=== PATIENT | female | born 1950 | race Caucasian/White ===

== ENCOUNTER → 2016-10-16 | Outpatient (CLI) | payer MEDICARE, OTHER ==
--- NOTE | 2016-10-16 15:48 | MR ---
MR brain and lumbar spine without contrast HISTORY: Unspecified optic atrophy, spinal stenosis Multiplanar multisequence imaging obtained through the brain and lumbar spine Correlation to prior MR lumbar spine 16 April 2014, prior brain MRI 28 September 2013, brain and orbi t MRI 23 May 2007 Brain MRI: There is no restricted diffusion to suggest subacute ischemia. Cortical atrophy is likely age-related. Scattered periventricular white matter hyperintensities are present on inversion recover y and T2-weighted sequences similar to prior exam, there are approximately 10-15 lesions. Probable mu cus retention cyst again noted within the maxillary antrum on the left. The orbits show symmetric inocente earance, optic nerves show a symmetric and stable appearance. Cerebellopontine angles, corpus callosu m, pituitary, cervical medullary junction are unremarkable. There is no hemorrhage or hydrocephalus. IMPRESSION: No significant interval change. Stable exam. Nonspecific white matter demyelination, age- related atrophy are stable findings. Additional findings above. Lumbar MRI: There is mild spinal curvature. Lumbar vertebral bodies show preserved height. Heterogene ous marrow signal is noted, there is anterolisthesis grade 1 L4-5, retrolisthesis grade 1 L2-3 as on previous exam. Multilevel spondylosis is present. Some loss of disc height and signal is greatest at L2-3, loss of disc signal is present throughout compatible with disc desiccation. The conus is at T12 and shows an unremarkable appearance. Incidental note made of borderline common bile duct dilation, correlate for possible cholecystectomy consider alternate imaging for better evaluation L5-S1: Facet arthropathy changes present, circumferential extension of broad-based disc bulge may con tact the proximal S1 nerve roots, anterior thecal sac, there may be minimal foraminal encroachment bi laterally. L4-5: The listhesis contributes with circumferential disc bulge causes some mild foraminal encroachme nt, mild anterior mass effect on the thecal sac. No significant spinal stenosis. Hypertrophy of ligam entum flavum with facet arthropathy encroaches mildly on the lateral recesses. L3-4: Facet arthropathy with hypertrophy ligamentum flavum encroaches on the lateral recesses, circum ferential extension of endplate disc bulge causes some mild foraminal encroachment bilaterally. Mild central stenosis. L2-3: Posterior broad-based disc bulge causes mild anterior mass effect on the thecal sac. Mild encro achment or significant neural foramina. There is facet arthropathy. L1-2: Mild posterior broad-based disc bulge causes minimal anterior mass effect on the thecal sac. No significant central stenosis. T12-L1: Right posterior paracentral disc bulge causes minimal anterior mass effect on the thecal sac. Small cortical cyst associated with the right kidney. IMPRESSION: Degenerative disc disease, facet arthropathy, mild foraminal encroachment and probable un derlying osteopenia or osteoporosis. Findings are similar to prior exam.
== END | disposition home or self-care (01) ==
LOC: RADMRIMAIN 09:33
PROVIDERS: ATTEND Family Medicine
DX: H47.20 Unspecified optic atrophy (principal)
CPT/HCPCS: 70551; 72148

== ENCOUNTER 2020-05-28 18:31 | Emergency (ER) | payer MEDICARE, OTHER ==
[2020-05-28] MEDS ORDERED: SODIUM CHLORIDE 0.9% 1,000 ML IV STA (18:45)
[2020-05-28] MEDS ORDERED: METOCLOPRAMIDE 5 MG/ML 2 ML VIAL IVP STA (19:01)
--- NOTE | 2020-05-28 19:03 | ED ---
General Adult HPI - General Chief complaint: Nausea/Vomiting/Diarrhea Stated complaint: nausea/vomiting Time Seen by Provider: 05/28/20 18:34 Source: patient, EMS Mode of arrival: EMS Limitations: no limitations - History of Present Illness Initial comments: Dictation was produced using [employer] dictation software. please excuse any grammatical, word or spelling errors. This patient was cared for during a federal and state declared state of emerg ency secondary to Covid 19 Chief Complaint: 69-year-old female presents with nausea History of Present Illness: Patient is a 69-year-old female she has past medical history of thyroid disease and depression. She states that at approximately 5 PM today she began experiencing acute onset of nausea and vomiting. Patient denies any sensation of the room spinning. She reports that she has history of hypoglycemia. She took 3 glucose pills and checked her sugar after was found to be 113. Patient has any pain. No shortness of breath no abdominal pain. EMS was called patient brought to the emergency department. She reports that her emesis is nonbilious not bloody. The ROS documented in this emergency department record has been reviewed and confirmed by me. Those systems with pertinent positive or negative responses have been documented in the HPI. All other systems are other negative and/or noncontributory. PHYSICAL EXAM: General Impression: Alert and oriented x3, not in acute distress HEENT: Normocephalic atraumatic, extra-ocular movements intact, pupils equal and reactive to light bilaterally, dry mucous membranes Cardiovascular: Heart regular rate and rhythm Chest: Able to complete full sentences, no retractions, no tachypnea Abdomen: abdomen soft, non-tender, non-distended, no organomegaly Musculoskeletal: Pulses present and equal in all extremities, no peripheral edema Motor: no focal deficits noted Neurological: CN II-XII grossly intact, no focal motor or sensory deficits noted Skin: Intact with no visualized rashes Psych: Normal affect and mood ED course: 69-year-old female presents with acute onset nausea and vomiting vital signs upon arrival are within acceptable limits.Laboratory evaluation obtained. CBC obtained. There is mild lymphocytopenia with the level of 0.8. Metabolic panel shows an 136. Potassium 3.3. Patient given Reglan. She is reevaluated and reports significant improvement of her symptoms. Patient is well-appearing. She is tolerating oral. She is denying any nausea at this time. Patient given Zofran ODT starter pack. Given prescription for antiemetics. Patient clear for discharge patient is advised follow-up with her primary care physician. EKG interpretation: Ventricular rate 75, normal sinus rhythm, DE interval 124, QRS 106, QTC 486. No DE prolongation, no QTC prolongation, no ST or T-wave changes noted. No EKG for comparison. Overall, this EKG is unremarkable - Related Data Home Medications Medication Instructions Recorded Confirmed Citalopram Hydrobromide [CeleXA] 40 mg PO DAILY 03/07/14 06/20/15 Levothyroxine Sodium [Synthroid] 112 mcg PO DAILY 03/07/14 06/20/15 [id number] 1 each PO HS 06/18/15 06/20/15 [Excedrin] Previous Rx's Medication Instructions Recorded Metoclopramide HCl [Reglan] 10 mg PO TID PRN #12 tablet 05/28/20 Allergies Allergy/AdvReac Type Severity Reaction Status Date / Time No Known Allergies Allergy Verified 05/28/20 18:43 Review of Systems ROS Statement: Those systems with pertinent positive or pertinent negative responses have been documented in the HPI. ROS Other: All systems not noted in ROS Statement are negative. Past Medical History Past Medical History: Eye Disorder, Osteoarthritis (OA), Thyroid Disorder Additional Past Medical History / Comment(s): SPINAL STENOSIS/DRUSEN DEPOSITS ON OPTIC NERVE CAUSING VISION LOSS/BACK PAIN, having choking episodes w/eating, hypoglycemia History of Any Multi-Drug Resistant Organisms: None Reported Past Surgical History: Appendectomy, Cholecystectomy, Tubal Ligation Additional Past Surgical History / Comment(s): THYROIDECTOMY/L BREAST BIOPSY Past Anesthesia/Blood Transfusion Reactions: No Reported Reaction Past Psychological History: Depression Smoking Status: Never smoker Past Alcohol Use History: Occasional Past Drug Use History: None Reported - Past Family History Father Family Medical History: Cancer General Exam Limitations: no limitations Course Vital Signs 05/28/20 18:37 Temperature 98.3 F Pulse Rate 77 Respiratory 16 Rate Blood Pressure 165/98 O2 Sat by Pulse 98 Oximetry Medical Decision Making - Lab Data Result diagrams: 05/28/20 19:09 05/28/20 19:09 Lab Results 05/28/20 05/28/20 05/28/20 Range/Units 19:07 19:09 19:09 WBC 3.9 (3.8-10.6) k/uL RBC 4.07 (3.80-5.40) m/uL Hgb 12.5 (11.4-16.0) gm/dL Hct 36.4 (34.0-46.0) % MCV 89.6 (80.0-100.0) fL MCH 30.8 (25.0-35.0) pg MCHC 34.4 (31.0-37.0) g/dL RDW 13.1 (11.5-15.5) % Plt Count 206 (150-450) k/uL MPV 6.9 Neutrophils % 73 % Lymphocytes % 20 % Monocytes % 6 % Eosinophils % 1 % Basophils % 1 % Neutrophils # 2.8 (1.3-7.7) k/uL Lymphocytes # 0.8 L (1.0-4.8) k/uL Monocytes # 0.2 (0-1.0) k/uL Eosinophils # 0.0 (0-0.7) k/uL Basophils # 0.0 (0-0.2) k/uL Sodium 136 L (137-145) mmol/L Potassium 3.3 L (3.5-5.1) mmol/L Chloride 101 (98-107) mmol/L Carbon Dioxide 27 (22-30) mmol/L Anion Gap 8 mmol/L BUN 12 (7-17) mg/dL Creatinine 0.55 (0.52-1.04) mg/dL Est GFR (CKD-EPI)AfAm >90 (>60 ml/min/1.73 sqM) Est GFR (CKD-EPI)NonAf >90 (>60 ml/min/1.73 sqM) Glucose 145 H (74-99) mg/dL POC Glucose (mg/dL) 147 H (75-99) mg/dL POC Glu Jumpbasting Facing Baster ID Britni Rousseau Calcium 8.2 L (8.4-10.2) mg/dL Magnesium 2.0 (1.6-2.3) mg/dL Total Bilirubin 0.6 (0.2-1.3) mg/dL AST 25 (14-36) U/L ALT 13 (4-34) U/L Alkaline Phosphatase 94 (38-126) U/L Total Protein 7.0 (6.3-8.2) g/dL Albumin 4.4 (3.5-5.0) g/dL Lipase 93 (23-300) U/L TSH 0.945 (0.465-4.680) mIU/L Coronavirus (PCR) (Not Detectd) 05/28/20 Range/Units 20:07 WBC (3.8-10.6) k/uL RBC (3.80-5.40) m/uL Hgb (11.4-16.0) gm/dL Hct (34.0-46.0) % MCV (80.0-100.0) fL MCH (25.0-35.0) pg MCHC (31.0-37.0) g/dL RDW (11.5-15.5) % Plt Count (150-450) k/uL MPV Neutrophils % % Lymphocytes % % Monocytes % % Eosinophils % % Basophils % % Neutrophils # (1.3-7.7) k/uL Lymphocytes # (1.0-4.8) k/uL Monocytes # (0-1.0) k/uL Eosinophils # (0-0.7) k/uL Basophils # (0-0.2) k/uL Sodium (137-145) mmol/L Potassium (3.5-5.1) mmol/L Chloride (98-107) mmol/L Carbon Dioxide (22-30) mmol/L Anion Gap mmol/L BUN (7-17) mg/dL Creatinine (0.52-1.04) mg/dL Est GFR (CKD-EPI)AfAm (>60 ml/min/1.73 sqM) Est GFR (CKD-EPI)NonAf (>60 ml/min/1.73 sqM) Glucose (74-99) mg/dL POC Glucose (mg/dL) (75-99) mg/dL POC Glu Jumpbasting Facing Baster ID Calcium (8.4-10.2) mg/dL Magnesium (1.6-2.3) mg/dL Total Bilirubin (0.2-1.3) mg/dL AST (14-36) U/L ALT (4-34) U/L Alkaline Phosphatase (38-126) U/L Total Protein (6.3-8.2) g/dL Albumin (3.5-5.0) g/dL Lipase (23-300) U/L TSH (0.465-4.680) mIU/L Coronavirus (PCR) Not Detected (Not Detectd) Disposition Clinical Impression: Nausea & vomiting Disposition: HOME SELF-CARE Condition: Good Instructions (If sedation given, give patient instructions): Acute Nausea and Vomiting (ED) Prescriptions: Metoclopramide HCl [Reglan] 10 mg PO TID PRN #12 tablet PRN Reason: Nausea And Vomiting Is patient prescribed a controlled substance at d/c from ED?: No Referrals: Rosina Mar MD [Primary Care Provider] - 1-2 days Time of Disposition: 20:59
[2020-05-28 19:09] LABS: Glucose,Whole Blood 147 mg/dL (75-99)
[2020-05-28 19:22] LABS: Basophils % (A) 1 %; Eosinophils % (A) 1 %; HCT 36.4 % (34.0-46.0); HGB 12.5 gm/dL (11.4-16.0); Lymphocytes # (A) 0.8 k/uL (1.0-4.8); Lymphocytes % (A) 20 %; MCH 30.8 pg (25.0-35.0); MCHC 34.4 g/dL (31.0-37.0); MCV 89.6 fL (80.0-100.0); Mean Platelet Volume 6.9; Monocytes # (A) 0.2 k/uL (0-1.0); Monocytes % (A) 6 %; Neutrophils # (A) 2.8 k/uL (1.3-7.7); Neutrophils % (A) 73 %; Platelet Count 206 k/uL (150-450); RBC 4.07 m/uL (3.80-5.40); RDW 13.1 % (11.5-15.5); WBC 3.9 k/uL (3.8-10.6)
[2020-05-28 19:25] LABS: ALT 13 U/L (4-34); AST 25 U/L (14-36); African American GFR (CKD) >90 (>60 ml/min/1.73 sqM); Albumin 4.4 g/dL (3.5-5.0); Alkaline Phosphatase 94 U/L (38-126); Anion Gap 8 mmol/L; Blood Urea Nitrogen 12 mg/dL (7-17); Calcium 8.2 mg/dL (8.4-10.2); Carbon Dioxide 27 mmol/L (22-30); Chloride 101 mmol/L (98-107); Glucose 145 mg/dL (74-99); Lipase 93 U/L (23-300); Non-African American GFR(CKD) >90 (>60 ml/min/1.73 sqM); Potassium 3.3 mmol/L (3.5-5.1); Sodium 136 mmol/L (137-145); Total Bilirubin 0.6 mg/dL (0.2-1.3)
[2020-05-28] MEDS ORDERED: CALCIUM ACETATE 667 MG TAB PO STA (20:04)
[2020-05-28] MEDS ORDERED: POTASSIUM CHLORIDE ER 20 MEQ TAB.ER PO STA (20:20)
[2020-05-28] MEDS ORDERED: ONDANSETRON 4 MG ODT STARTER PACK 2 TAB BTL PO STA (20:57)
[2020-05-28 21:18] VITALS: BP 155/78; PULSE 82; RESP 18; TEMP 97.9
== END 2020-05-28 21:18 | disposition home or self-care (01) ==
LOC: EC 18:31
DX: Z03.818 Encounter for observation for suspected exposure to other biological agents ruled out (principal); R11.2 Nausea with vomiting, unspecified; D72.810 Lymphocytopenia; E07.9 Disorder of thyroid, unspecified; M19.90 Unspecified osteoarthritis, unspecified site; F32.9 Major depressive disorder, single episode, unspecified; Z79.899 Other long term (current) drug therapy; Z79.890 Hormone replacement therapy; Z79.82 Long term (current) use of aspirin; Z90.89 Acquired absence of other organs; Z90.49 Acquired absence of other specified parts of digestive tract
CPT/HCPCS: 36415; 93005; 80053; 83690; 83735; 84443; 85025; 87635; 99284; 96374; 96361; J2765; S0119